=== PATIENT | male | born 1995 | race African-American/Black ===

== ENCOUNTER 2017-10-13 15:22 | Emergency (ER) | payer BC ==
[~2017-10-13] VITALS: Ht 182.9 cm; Wt 68.0 kg
[2017-10-13 16:12] LABS: BASOPHILS 0.1 % (0.0-2.0); EOSINOPHILS 1.7 % (0.0-3.0); HEMATOCRIT 51.2 % (42.0-52.0); HEMOGLOBIN 17.6 gm/dL (14.0-18.0); LYMPHOCYTES 10.4 % (24.0-44.0); MCH 31.3 pg (26.0-34.0); MCHC 34.4 g/dL (28.0-37.0); MCV 91.1 fL (80.0-100.0); MONOCYTES 9.7 % (1.0-8.0); PLATELET COUNT 173 thou/uL (150-400); POLYS 78.1 % (36.0-66.0); RBC 5.63 mil/uL (4.50-6.00); RDW 13.4 % (10.5-14.5); WBC 11.5 thou/uL (4.0-11.0)
[2017-10-13 16:19] LABS: CALCIUM 10.3 mg/dL (8.5-10.1); CREATININE 0.9 mg/dL (0.7-1.3); POTASSIUM 3.4 mmol/L (3.5-5.1)
[2017-10-13 16:24] LABS: ALBUMIN 5.2 g/dL (3.4-5.0); TOTAL BILIRUBIN 1.1 mg/dL (<0.1-1.0); TOTAL PROTEIN 9.1 g/dL (6.4-8.2)
[2017-10-13] MEDS ORDERED: LOPERAMIDE 2 MG2 M1 PO (17:17)
[2017-10-13] MEDS ORDERED: FLAGYL500 MG PO (17:17)
[2017-10-13] MEDS ORDERED: CIPRO500 MG PO (17:17)
== END 2017-10-13 18:10 | disposition home or self-care (01) ==
LOC: ER 15:22
PROVIDERS: Physician Assistant
DX: K52.9 Noninfective gastroenteritis and colitis, unspecified (principal); F10.99 Alcohol use, unspecified with unspecified alcohol-induced disorder

== ENCOUNTER 2018-05-16 19:54 | Emergency (ER) | payer BC ==
[~2018-05-16] VITALS: Ht 182.9 cm; Wt 63.5 kg
[~2018-05-16 19:54] MED LIST: CIPRO500 MG PO; FLAGYL500 MG PO; LOPERAMIDE 2 MG2 M1 PO
[2018-05-16 20:00] VITALS: BP 140/91
[2018-05-16] MEDS ORDERED: IBUPROFEN 800800 M1 PO (20:45)
[2018-05-16] MEDS ORDERED: BUTALB-APAP-CA1 EACH PO (20:45)
== END 2018-05-16 20:52 | disposition home or self-care (01) ==
LOC: ER 19:54
DX: R51 Headache (principal); F17.200 Nicotine dependence, unspecified, uncomplicated

== ENCOUNTER 2020-12-16 04:28 | Emergency (ER) | payer OTHER, BC ==
[~2020-12-16] VITALS: Ht 182.9 cm; Wt 74.8 kg
[~2020-12-16 04:28] MED LIST changes: +BUTALB-APAP-CA1 EACH PO; +IBUPROFEN 800800 M1 PO
[2020-12-16] MEDS ORDERED: NOHOMEMEDICATIONS (04:43)
[2020-12-16] MEDS ORDERED: IBUPROFEN 800800 MG PO (05:43)
[2020-12-16] MEDS ORDERED: FLEXERIL PO (05:43)
[2020-12-16] MEDS ORDERED: TYLENOL325 M1 PO (05:43)
[2020-12-16 05:50] VITALS: BP 109/53
== END 2020-12-16 06:08 | disposition home or self-care (01) ==
LOC: ER 04:28
DX: M54.2 Cervicalgia (principal); G43.909 Migraine, unspecified, not intractable, without status migrainosus; V49.59XA Passenger injured in collision with other motor vehicles in traffic accident, initial encounter; Y93.89 Activity, other specified; Y92.413 State road as the place of occurrence of the external cause; Y99.9 Unspecified external cause status